=== PATIENT | female | born 1955 | race Caucasian/White ===

== ENCOUNTER → 2017-04-06 11:58 | Outpatient (CLI) | payer MEDICAID ==
[2015-07-28 04:42] VITALS: BMI 36.4
[~2017-04-06 11:58] MED LIST: ASPIRIN325 MG PO; BACTRIM DS TABL1 TAB PO; GLIPIZIDE10 MG PO; GLUCOPHAGE500 MG PO; LIPITOR10 MG PO; RIFADIN300 MG PO; ZESTRIL20 MG PO
== END | disposition home or self-care (01) ==
LOC: D.RAD 11:48 → EDSTATUS 11:57 → D.RAD 11:58
DX: M79.601 Pain in right arm (principal)

== ENCOUNTER → 2018-03-19 09:16 | Outpatient (CLI) | payer MEDICAID ==
[2015-07-28 04:42] VITALS: BMI 36.4
== END | disposition home or self-care (01) ==
LOC: D.NM 09:16
DX: I20.0 Unstable angina (principal); R06.02 Shortness of breath

== ENCOUNTER → 2018-03-27 08:52 | Outpatient (CLI) | payer MEDICAID ==
[2015-07-28 04:42] VITALS: BMI 36.4
--- NOTE | ~2018-03-27 | ST ---
PATIENT:NATHALIE MORFIN MEDICAL RECORD: [id number] SEX: F LOCATION:[facility] ORDER #: ADMISSION DATE: 03/27/18 AGE OF PATIENT: 62 REFERRING PHYSICIAN: INTERPRETING PHYSICIAN: POONAM KEYS MD DATE OF SERVICE: 03/27/2018 PROCEDURE: Nuclear stress test. INDICATION: Chest pain of unknown etiology. She was exercised on standard Lexiscan protocol with 30.2 mCi of sestamibi injected at peak stress. Rest images were done previously with 12.2 mCi. FINDINGS: Gated SPECT reveals preserved ejection fraction greater than 60% with good wall motioning and thickening and brightening throughout all segments. SPECT imaging sestamibi was used as a myocardial perfusion agent. There is homogeneous uptake throughout all segments at rest and stress with no evidence of inducible ischemia or previous infarction. OVERALL IMPRESSION: 1. This is a normal nuclear stress test with no evidence of inducible ischemia or previous infarction. 2. Gated SPECT reveals a preserved ejection fraction greater than 60%. In this patient with ongoing symptomatology, the current scan does not suggest the presence of hemodynamically significant coronary disease. Evaluate noncardiac etiology of chest pain. TRANSINT:[id number] Voice Confirmation ID: [id number] DOCUMENT ID: [id number] POONAM KEYS MD at 1914 CC: [id number] DICTATION DATE: 03/28/18919 BAG WORKER: 03/28/188 [facility] CLI 03/27/18 [facility] [address] [place] [address]
== END ==
LOC: D.NM 08:52
DX: I20.0 Unstable angina (principal); R06.02 Shortness of breath

== ENCOUNTER 2019-06-04 17:07 | Inpatient (IN) | payer MEDICAID ==
[~2019-06-04] VITALS: Ht 167.6 cm; Wt 95.5 kg
--- NOTE | 2019-06-04 17:49 | NUR ---
ATTEMPTED TO CALL REPORT, WAITING ON EVS TO CLEAN ROOM AT THIS TIME
[2019-06-04 17:52] LABS: BASOPHILS 0.1 % (0-2); EOSINOPHILS 1.1 % (0-7); HEMATOCRIT 45.2 % (36.0-48.0); IMMATURE GRANULOCYTES 0.4 % (0-5); LYMPHOCYTES 23.3 % (15-50); MCH 30.6 pg (26.0-34.0); MCHC 33.2 g/dL (31.0-37.0); MCV 92.2 fL (80.0-100.0); MEAN PLATELET VOLUME 11.3 fL (7.4-10.4); MONOCYTES 7.2 % (2-11); NEUTROPHILS 67.9 % (40-80); PLATELET COUNT 349 10x3/uL (130-400); RDW 13.3 % (11.5-14.5); WBC 14.9 10x3/uL (4.8-10.8)
[2019-06-04 18:05] LABS: INR 0.96 (0.85-1.17); PROTIME 12.3 SECONDS (11.6-15.0)
[2019-06-04 18:54] VITALS: BP 167/83
[2019-06-04 18:58] LABS: ANION GAP 15.2 mmol/L (8-16); CALCIUM 9.6 mg/dL (8.5-10.1); CARBON DIOXIDE 28.5 mmol/L (21.0-32.0); CREATININE - SERUM 0.9 mg/dL (0.6-1.3); POTASSIUM - SERUM 3.7 mmol/L (3.5-5.1)
[2019-06-04 19:04] LABS: ALBUMIN 3.5 g/dL (3.4-5.0); BILIRUBIN - TOTAL 0.5 mg/dL (0.2-1.3); PROTEIN - SERUM 7.8 g/dL (6.4-8.2)
--- NOTE | 2019-06-04 19:21 | NUR ---
PT UPDATED ON PLAN OF CARE. NO S/S OF ACUTE DISTRESS NOTED. PT DENIES PAIN TO HIP AND ONLY C/O PAIN TO RIBS WHEN MOVING ARM. PT REPORTS DECREASE IN PAIN AFTER RECEIVING MORPHINE EARLIER.
--- NOTE | 2019-06-04 19:45 | NUR ---
ADMITED TO ROOM FROM ER ALERT AND ORIENTIATED, DENIES PAIN EXCEPT WITH MOVEMENT THEN C/O MOR OF PAIN TO LEFT RIBS THAN LEFT HIP, ORIENTIATED TO ROOM CALL LIGHT IN REACH, SEE ASSESSMENT
[2019-06-04] MEDS ORDERED: HYDROCODON-ACE1 EA10 (20:07)
[2019-06-04] MEDS ORDERED: NORVASC10 MG (20:08)
--- NOTE | 2019-06-04 21:15 | NUR ---
CALL TO DR FAYE AND ORDERS RECIEVED FOR DIET, NO BUCKS TRACTION AND CHANGES IN PAIN MEDICATIONS
[2019-06-04 22:49] VITALS: BP 177/85; Ht 167.6 cm; Wt 95.5 kg
[2019-06-05] VITALS (7 sets, daily range): BP systolic 144–183; BP diastolic 70–89
[2019-06-05 05:02] LABS: BASOPHILS 0.2 % (0-2); EOSINOPHILS 2.3 % (0-7); HEMATOCRIT 41.4 % (36.0-48.0); HEMOGLOBIN 13.4 g/dL (12-16); IMMATURE GRANULOCYTES 0.2 % (0-5); LYMPHOCYTES 26.1 % (15-50); MCH 30.1 pg (26.0-34.0); MCHC 32.4 g/dL (31.0-37.0); MEAN PLATELET VOLUME 11.4 fL (7.4-10.4); MONOCYTES 9.3 % (2-11); NEUTROPHILS 61.9 % (40-80); PLATELET COUNT 320 10x3/uL (130-400); RBC 4.45 10x6/uL (4.00-5.40); RDW 13.2 % (11.5-14.5); WBC 12.5 10x3/uL (4.8-10.8)
[2019-06-05 05:18] LABS: ANION GAP 12.4 mmol/L (8-16); CARBON DIOXIDE 28.9 mmol/L (21.0-32.0); CREATININE - SERUM 0.9 mg/dL (0.6-1.3); POTASSIUM - SERUM 3.3 mmol/L (3.5-5.1)
--- NOTE | 2019-06-05 07:42 | NUR ---
USED BED NOE WITH FURNACE CHARGING MACHINE OPERATOR. VOIDED WITHOUT DIFFICUTLY. AWAKE AND ALERT. ORIENTED X3. NO C/O AT THIS TIME. LUNGS ARE CLEAR BILATERALLY, NO COUGH NOTED. SKIN IS INTACT WITHOUT REDNESS. SL TO RIGHT AC IS PATENT WITHOUT REDNESS AT INSERTION SITE. DENIES NEEDS. REPORTS PAIN ONLY WHEN SHE MOVES HER LEFT ARM. WILL MONITOR.
--- NOTE | 2019-06-05 09:30 | NUR ---
ATE MOST OF BREAKFAST. TOOK AM MEDS WITHOUT DIFFICUTLY. DENIES NEEDS. FAMILY AT BEDSIDE.
--- NOTE | 2019-06-05 12:30 | NUR ---
ATE ALL OF LUNCH. FAMILY AT BEDSIDE. DENIES NEEDS.
--- NOTE | 2019-06-05 13:15 | NUR ---
UP TO BR WITH SBA. VOIDED WITHOUT DIFFICULTY. DENIES NEEDS.
--- NOTE | 2019-06-05 17:00 | NUR ---
FSBS 245. GIVEN 4 UNITS REGULAR SUBQ PER SS. ATE ALL OF SUPPER TRAY. REPORTED UP TO BR PER SELF AND HAD A GOOD BM. DENIES NEEDS. NO CHANGES NOTED. FAMILY AT BEDSIDE.
[2019-06-06] VITALS: BP 185/99
--- NOTE | 2019-06-06 03:10 | NUR ---
ALERT AND ORENTED ABLE TO VOICE NEEDS AND WANTS TO STAFF. FAMILY AT BEDSIDE, IV TO RIGHT AC NO S/ S OF INFECTION. NO TELEMRTRY [place] AT THIS TIME. SCD'S PLACED ON PATIENT REMOVED. NON NEEDS AT THIS TIME.
--- NOTE | 2019-06-06 07:40 | NUR ---
AWAKE AND ALERT. ORIENTED X3. NO C/O AT THIS TIME. LUNGS ARE CLEAR BILATERALLY, NO COUGH NOTED. SKIN IS INTACT WITHOUT REDNESS. SL TO RIGHT AC IS PATENT WITHOUT REDNESS AT INSERTION SITE. DENIES NEEDS.
[2019-06-06 08:14] LABS: BASOPHILS 0.5 % (0-2); EOSINOPHILS 2.9 % (0-7); HEMATOCRIT 44.3 % (36.0-48.0); HEMOGLOBIN 14.8 g/dL (12-16); IMMATURE GRANULOCYTES 0.4 % (0-5); LYMPHOCYTES 27.2 % (15-50); MCH 30.8 pg (26.0-34.0); MCHC 33.4 g/dL (31.0-37.0); MCV 92.1 fL (80.0-100.0); MEAN PLATELET VOLUME 11.3 fL (7.4-10.4); MONOCYTES 8.5 % (2-11); NEUTROPHILS 60.5 % (40-80); PLATELET COUNT 320 10x3/uL (130-400); RBC 4.81 10x6/uL (4.00-5.40); RDW 13.2 % (11.5-14.5); WBC 12.9 10x3/uL (4.8-10.8)
[2019-06-06 08:24] LABS: CALC OSMOLALITY 295 mosm/kg (275-300); CALCIUM 9.4 mg/dL (8.5-10.1); CARBON DIOXIDE 28.5 mmol/L (21.0-32.0); CHLORIDE - SERUM 104 mmol/L (98-107); CREATININE - SERUM 0.8 mg/dL (0.6-1.3); GLUCOSE 279 mg/dL (74-106); SODIUM 143 mmol/L (136-145); UREA NITROGEN 15 mg/dL (7-18); eGFR NON AFRICAN AMERICAN 77 mL/min (90-120)
[2019-06-06 08:25] LABS: POTASSIUM - SERUM 3.8 mmol/L (3.5-5.1)
--- NOTE | 2019-06-06 10:04 | MORECARE ---
CASE MANAGEMENT DISCHARGE SUMMARY PATIENT: NATHALIE MORFIN UNIT: [id number] ADM DATE: 06/04/19 AGE: 64 : 57 SEX: F ROOM/BED: D.2205 AUTHOR: KARINA ALLEN PHYSICIAN: REFERRING PHYSICIAN: ERIBERTO TAN MD DATE OF SERVICE: 06/06/19 Discharge Plan Patient Name: NATHALIE MORFIN Facility: [facility]:[place] : 1955 Planned Disposition: Home Anticipated Discharge Date: 06/06/19 Discharge Date: Expected LOS: 2 Initial Reviewer: [email or web address] Initial Review Date: 06/06/2019 Generated: 06/06/19 11:03 am DCPIA - Discharge Planning Initial Assessment Updated by [email or web address]: Olamide Hirsch on 06/06/19 10:02 am * Is the patient Alert and Oriented? Yes * How many steps to enter\exit or inside your home? 3/0 * PCP Dr. Tan * Pharmacy [facility] on [address] * Preadmission Environment Home with Family * ADLs Independent * Equipment Walker * List name and contact numbers for known caregivers / representatives who currently or will assist patient after discharge: Rhea Morfin [facility] - [phone] [facility] - [phone] * Verbal permission to speak to the caregivers and representatives has been obtained from the patient. Yes * Community resources currently utilized None * Additional services required to return to the preadmission environment? No * Can the patient safely return to the preadmission environment? Yes * Has this patient been hospitalized within the prior 30 days at any hospital? No Patient Name: NATHALIE MORFIN Page 52601 at 1004 All edits/amendments must be made on the electronic document DICTATION DATE: 06/06/19 [address] DRIVER: ABHIJIT 06/06/19 1003 RPT#: [id number] DC DATE: STATUS: ADM IN [facility] [address] [place] [address] END OF REPORT
[2019-06-06 10:12] VITALS: BP 184/104
--- NOTE | 2019-06-06 10:20 | NUR ---
ATE ALL OF BREAKFAST. TOOK AM MEDS WITHOUT DIFFICULTY. DISCHARGE INSTRUCTIONS GIVEN BOTH VERBALLY AND WRITTEN. ALL QUESTIONS ANSWERED. PATIENT VERBALIZED UNDERSTANDING OF SAME. SL TO RIGHT FOREARM D/C WITH CATHETER INTACT. FAMILY IN ROOM. WAITING ON DRESSING TO LEAVE.
--- NOTE | 2019-06-06 10:51 | NUR ---
DISCHARGED TO HOME WITH FAMILY AMBULATORY. ALL BELONGINGS WITH PATIENT. NO NEW PRESCRIPTIONS NEEDED.
--- NOTE | 2019-06-08 09:59 | MORECARE ---
CASE MANAGEMENT DISCHARGE SUMMARY PATIENT: NATHALIE MORFIN UNIT: [id number] ADM DATE: 06/04/19 AGE: 64 : 57 SEX: F ROOM/BED: D.2200 AUTHOR: KARINA LALEN PHYSICIAN: REFERRING PHYSICIAN: ERIBERTO TAN MD DATE OF SERVICE: 06/08/19 Discharge Plan Patient Name: NATHALIE MORFIN Facility: [facility]:[place] : 1955 Planned Disposition: Home Anticipated Discharge Date: 06/06/19 Discharge Date: 06/06/2019 Expected LOS: 2 Initial Reviewer: [email or web address] Initial Review Date: 06/06/2019 Generated: 06/08/19 10:58 am DCP- Discharge Planning Updated by [email or web address]: Olamide Hirsch on 06/06/19 9:[address] Patient Name: NATHALIE MORFIN Admission Status: ER Accout number: [id number] Admission Date: 06-04-2019 : 1955 Admission Diagnosis: Attending: ERIBERTO TAN Current LOS: 2 Anticipated DC Date: 06-06-2019 Planned Disposition: Home Primary Insurance: MEDICAID [place] Discharge Planning Comments: CM met with patient to complete initial dc planning assessment. CM educated patient on the CM role and verbal consent given by patient to complete assessment. Patient lives at home with her daughter and . At discharge patient plans to return and feels this is a safe discharge. CM discussed availability of home health, rehab services, and medical equipment. Patient denied known discharge needs at this time. States she has a walker at home and her doctor told her to use her walker for now. States she has been ambulating without difficulty. CM will continue to follow and will assist as needed with dc plans/needs. Wastewater Superintendent: Olamide Hirsch DCPIA - Discharge Planning Initial Assessment Updated by [email or web address]: Olamide Hirsch on 06/06/19 10:02 am * Is the patient Alert and Oriented? Yes * How many steps to enter\exit or inside your home? 3/0 * PCP Dr. Tan * Pharmacy [facility] * Preadmission Environment Home with Family * ADLs Independent * Equipment Walker * List name and contact numbers for known caregivers / representatives who currently or will assist patient after discharge: Rhea Morfin - [facility] - [phone] [facility] - [phone] * Verbal permission to speak to the caregivers and representatives has been obtained from the patient. Yes * Community resources currently utilized None * Additional services required to return to the preadmission environment? No * Can the patient safely return to the preadmission environment? Yes * Has this patient been hospitalized within the prior 30 days at any hospital? No Last DP export: 06/06/19 9:04 am Patient Name: NATHALIE MORFIN Page 95653 at 0959 All edits/amendments must be made on the electronic document DICTATION DATE: 06/08/19957 BEHAVIORAL PEDIATRICIAN: ABHIJIT 06/08/19957 RPT#: [id number] DC DATE:06/06/19 STATUS: DIS IN [facility] [address] [place] [address] END OF REPORT
== END 2019-06-06 10:51 | disposition home or self-care (01) | DRG 536 ==
LOC: D.ER 17:07 → D.MS 17:40
PROVIDERS: Emergency Medicine; ADMIT Legal Medicine; ATTEND Legal Medicine
DX: S32.592A Other specified fracture of left pubis, initial encounter for closed fracture (principal); W19.XXXA Unspecified fall, initial encounter; E11.9 Type 2 diabetes mellitus without complications; I10 Essential (primary) hypertension; M16.12 Unilateral primary osteoarthritis, left hip

== ENCOUNTER 2020-03-16 19:58 | Inpatient (IN) | payer MEDICAID ==
[~2020-03-16] VITALS: Ht 167.6 cm; Wt 92.5 kg
[~2020-03-16 19:58] MED LIST changes: +HYDROCODON-ACE1 EA10 PO; +NORVASC10 MG PO
[2020-03-16 21:38] LABS: BASOPHILS 0.1 % (0-2); EOSINOPHILS 0 % (0-7); HEMATOCRIT 45.5 % (36.0-48.0); HEMOGLOBIN 14.6 g/dL (12-16); IMMATURE GRANULOCYTES 0.3 % (0-5); MCH 29.6 pg (26.0-34.0); MCHC 32.1 g/dL (31.0-37.0); MCV 92.1 fL (80.0-100.0); MEAN PLATELET VOLUME 11.8 fL (7.4-10.4); MONOCYTES 5.4 % (2-11); NEUTROPHILS 88.2 % (40-80); PLATELET COUNT 361 10x3/uL (130-400); RBC 4.94 10x6/uL (4.00-5.40); RDW 12.8 % (11.5-14.5); WBC 15.4 10x3/uL (4.8-10.8)
[2020-03-16 21:52] LABS: ALBUMIN 2.8 g/dL (3.4-5.0); ANION GAP 27.6 mmol/L (8-16); BILIRUBIN - TOTAL 0.67 mg/dL (0.2-1.3); CALCIUM 9.7 mg/dL (8.5-10.1); CARBON DIOXIDE 15.7 mmol/L (21.0-32.0); CREATININE - SERUM 1.6 mg/dL (0.6-1.3); MAGNESIUM - SERUM 2.2 mg/dL (1.8-2.4); POTASSIUM - SERUM 4.3 mmol/L (3.5-5.1)
--- NOTE | 2020-03-16 22:02 | NUR ---
BLOOD SUGAR 595 MG/DL PROVIDER AWARE
[2020-03-16 22:11] LABS: BILIRUBIN NEGATIVE (NEGATIVE); KETONE MODERATE mg/dL (NEGATIVE); NITRITE NEGATIVE (NEGATIVE); UROBILINOGEN NORMAL mg/dL (< 2)
[2020-03-16 22:16] LABS: BACTERIA MODERATE HPF (NONE SEEN); EPITHELIAL CELLS 0-5 /hpf (0-5); WHITE CELLS - URINE 0-5 HPF (0-4)
[2020-03-16 23:24] VITALS: BP 179/89
[2020-03-17] VITALS (16 sets, daily range): BP systolic 94–201; BP diastolic 50–106; BMI 32.3
[2020-03-17 08:08] LABS: ANION GAP 16.5 mmol/L (8-16); CALCIUM 8.7 mg/dL (8.5-10.1); CREATININE - SERUM 1.3 mg/dL (0.6-1.3); MAGNESIUM - SERUM 1.9 mg/dL (1.8-2.4); POTASSIUM - SERUM 4.2 mmol/L (3.5-5.1)
[2020-03-17 08:15] LABS: CARBON DIOXIDE 21.7 mmol/L (21.0-32.0)
[2020-03-17 12:46] LABS: ANION GAP 12.3 mmol/L (8-16); CALCIUM 8.5 mg/dL (8.5-10.1); CARBON DIOXIDE 22.3 mmol/L (21.0-32.0); CREATININE - SERUM 1.1 mg/dL (0.6-1.3); MAGNESIUM - SERUM 1.7 mg/dL (1.8-2.4); POTASSIUM - SERUM 3.6 mmol/L (3.5-5.1)
--- NOTE | 2020-03-17 13:48 | NUR ---
DR TAN CALLED AND ORDERS TO HOLD ORAL DIABETIC MEDICATIONS GIVEN WHILE PT IS ON INSULIN DRIP
[2020-03-17 16:24] LABS: ANION GAP 12.3 mmol/L (8-16); CALCIUM 8.2 mg/dL (8.5-10.1); CARBON DIOXIDE 23.7 mmol/L (21.0-32.0); CREATININE - SERUM 1.1 mg/dL (0.6-1.3)
[2020-03-17 16:31] LABS: MAGNESIUM - SERUM 2.6 mg/dL (1.8-2.4)
--- NOTE | 2020-03-17 20:27 | NUR ---
PT IS SITTING UP IN CHAIR IN ROOM. SHE HAS NO C/O OR NEEDS. SHE HAS BEEN UP TO [facility] TO VOID X 1. SHE HAS A SALINE LOCK IN BOTH AC'S AND ONE IN HER RIGHT HAND. VS CHARTED. PT IS STAYING WITH HER BUT HE HAS BEEN GONE PICKING UP THE CHILDREN. SKIN WARM AND DRY. PT STATES SHE CANNOT WALK BECAUSE OF HER DIABETES BUT SHE GOT TO THE [facility] WITHOUT PROBLEMS. THERE IS DISCOLORATION ON THE TOPS OF HER FEET.
--- NOTE | 2020-03-17 21:20 | NUR ---
DISCHARGED FROM ER HOLDING TO ROOM 2215. SHE WAS TRANSPORTED VIA W/C. ALL HER BELONGINGS WENT WITH HER. PT IS HERE TO STAY WITH HER. HER CHART AND A BOTTLE OF REGULAR INSULIN WERE GIVEN TO LOULOU OLIVIA.
--- NOTE | 2020-03-17 21:30 | NUR ---
ARECEIVED TO FLOOR VIA WHEELCHAIR, ACCOMPANIED BY STAFF AND S/O. A&O X 4. REPORTS SHE'S STOPPED TAKING DIABETIC MEDS BECAUSE HER DOCTOR KEPT ASKING HER WHY SHE WAS TAKING THEM. ASKED PT WHO HER DOCTOR WAS, SHE REPLIED, "THE ONE AT [facility]." ASKED PT IF HER PHARMACIST IS WHO SHE WAS TALKING TO, SHE REPLIED, "YES, THE ONE WHO GIVES ME MY MEDICINE AT [facility]." CTM.
[2020-03-18] VITALS: BP 111/71
[2020-03-18 04:00] VITALS: BP 125/79
--- NOTE | 2020-03-18 07:44 | NUR ---
0700 BEDSIDE REPORT RECEIVED SPOUSE REMAINS AT BEDSIDE
[2020-03-18 08:46] VITALS: BP 140/80
[2020-03-18 09:02] LABS: BASOPHILS 0.1 % (0-2); EOSINOPHILS 0.8 % (0-7); HEMATOCRIT 42.5 % (36.0-48.0); HEMOGLOBIN 13.9 g/dL (12-16); IMMATURE GRANULOCYTES 0.6 % (0-5); LYMPHOCYTES 13.4 % (15-50); MCH 29.6 pg (26.0-34.0); MCHC 32.7 g/dL (31.0-37.0); MCV 90.4 fL (80.0-100.0); MEAN PLATELET VOLUME 11.3 fL (7.4-10.4); MONOCYTES 9.6 % (2-11); NEUTROPHILS 75.5 % (40-80); PLATELET COUNT 332 10x3/uL (130-400); RDW 12.9 % (11.5-14.5); WBC 13.9 10x3/uL (4.8-10.8)
[2020-03-18 09:18] LABS: ANION GAP 10.9 mmol/L (8-16); CARBON DIOXIDE 26.7 mmol/L (21.0-32.0); CREATININE - SERUM 0.9 mg/dL (0.6-1.3); POTASSIUM - SERUM 3.6 mmol/L (3.5-5.1)
[2020-03-18 09:24] LABS: ALBUMIN 2.5 g/dL (3.4-5.0); BILIRUBIN - TOTAL 0.5 mg/dL (0.2-1.3)
[2020-03-18 12:00] VITALS: BP 132/90
[2020-03-18 14:05] VITALS: Ht 167.6 cm; Wt 92.5 kg
[2020-03-18 16:53] VITALS: BP 177/103
[2020-03-18 20:00] VITALS: BP 165/92
[2020-03-19] VITALS: BP 193/97
--- NOTE | 2020-03-19 01:51 | NUR ---
I have reviewed this patient and I concur with the Shift Assessment completed by the Licensed Practical Nurse today this shift.
[2020-03-19 04:00] VITALS: BP 113/62
[2020-03-19 09:18] VITALS: BP 116/76
[2020-03-19 12:30] VITALS: BP 118/69
[2020-03-19 17:06] VITALS: BP 119/67
[2020-03-19 20:00] VITALS: BP 98/55
--- NOTE | 2020-03-19 22:49 | NUR ---
PT LYING IN BED WITH SPOUSE AT BEDSIDE. PT DENIES PAIN. SL TO RIGHT HAND AND LEFT ANTECUBITAL. PT BLOOD SUGAR 132, LANTUS HELD. NURSE WILL CONTINUE TO MONITOR.
[2020-03-20 04:00] VITALS: BP 116/72
--- NOTE | 2020-03-20 06:50 | NUR ---
A&O RESTING IN BED WITH EYES OPEN. NO C/O PAIN. NO S/S OF ACUTE DISTRESS NOTED. IV'S TO RIGHT HAND AND LEFT AC, SL. SITES PATENT WITHOUT REDNESS OR SWELLING. DENIES ANY NEEDS AT THIS TIME. CALL LIGHT IN REACH. WILL CONTINUE TO MONITOR.
[2020-03-20 08:57] LABS: BASOPHILS 0.2 % (0-2); EOSINOPHILS 1.4 % (0-7); HEMATOCRIT 40.2 % (36.0-48.0); HEMOGLOBIN 13.2 g/dL (12-16); IMMATURE GRANULOCYTES 1.2 % (0-5); LYMPHOCYTES 18.9 % (15-50); MCH 29.9 pg (26.0-34.0); MCHC 32.8 g/dL (31.0-37.0); MEAN PLATELET VOLUME 11.2 fL (7.4-10.4); MONOCYTES 9.8 % (2-11); NEUTROPHILS 68.5 % (40-80); PLATELET COUNT 394 10x3/uL (130-400); RBC 4.42 10x6/uL (4.00-5.40); RDW 12.9 % (11.5-14.5); WBC 13.3 10x3/uL (4.8-10.8)
[2020-03-20 09:11] LABS: ANION GAP 14.9 mmol/L (8-16); CARBON DIOXIDE 28.4 mmol/L (21.0-32.0); CREATININE - SERUM 0.9 mg/dL (0.6-1.3); POTASSIUM - SERUM 3.3 mmol/L (3.5-5.1)
[2020-03-20 10:41] VITALS: BP 124/79
--- NOTE | 2020-03-20 12:10 | NUR ---
I have reviewed this patient and I concur with the Shift Assessment completed by the Licensed Practical Nurse today this shift.
--- NOTE | 2020-03-20 12:59 | NUR ---
Nutrition follow-up: Diet: consistent CHO PO intake 75% of most meals Labs reviewed Wt: 199# PO intake continues to be good RDN following.
[2020-03-20 14:11] VITALS: BP 100/66
--- NOTE | 2020-03-20 14:35 | MORECARE ---
CASE MANAGEMENT DISCHARGE SUMMARY PATIENT: NATHALIE MORFIN UNIT: [id number] ADM DATE: 03/16/20 AGE: 64 : 57 SEX: F ROOM/BED: D.[facility] AUTHOR: KARINA ALLEN PHYSICIAN: REFERRING PHYSICIAN: ERIBERTO TAN MD DATE OF SERVICE: 03/20/20 Discharge Plan Patient Name: NATHALIE MORFIN Facility: [facility]:[place] : 1955 Planned Disposition: Home or Self Care Anticipated Discharge Date: Discharge Date: Expected LOS: Initial Reviewer: [email or web address] Initial Review Date: 03/17/2020 Generated: 03/20/20 3:34 pm Patient Name: NATHALIE MORFIN Page [phone] at 1435 All edits/amendments must be made on the electronic document DICTATION DATE: 03/20/20 1434 DATABASE OPERATOR: ABHIJIT 03/20/20 1434 RPT#: [id number] DC DATE: STATUS: ADM IN [facility] [address] [place] [address] END OF REPORT
--- NOTE | 2020-03-20 14:44 | MORECARE ---
CASE MANAGEMENT DISCHARGE SUMMARY PATIENT: NATHALIE MORFIN UNIT: [id number] ADM DATE: 03/16/20 AGE: 64 : 57 SEX: F ROOM/BED: D.2215 AUTHOR: KARINA ALLEN PHYSICIAN: REFERRING PHYSICIAN: ERIBERTO TAN MD DATE OF SERVICE: 03/20/20 Discharge Plan Patient Name: NATHALIE MORFIN Facility: [facility]:[place] : 1955 Planned Disposition: Home or Self Care Anticipated Discharge Date: Discharge Date: Expected LOS: Initial Reviewer: [email or web address] Initial Review Date: 03/17/2020 Generated: 03/20/20 3:44 pm Comments DCP- Discharge Planning Updated by [email or web address]: Alejandra Gonzalez on 03/20/20 1:[address] Patient Name: NATHALIE MORFIN Admission Status: ER Accout number: [id number] Admission Date: 03-16-2020 : 1955 Admission Diagnosis:TYPE 2 DIABETES MELLITUS WITH HYPERGLYCEMIA Attending: ERIBERTO TAN Current LOS: 4 Anticipated DC Date: Planned Disposition: Home or Self Care Primary Insurance: MEDICAID [place] Discharge Planning Comments: CM met with patient to complete initial dc planning assessment. CM educated patient on the CM role and verbal consent given by patient to complete assessment. Patient lives at home with her , adult daughter and 6 grandkids. At discharge patient plans to return home and feels this is a safe discharge. CM discussed availability of home health, rehab services, and medical equipment. She said that she uses a shower chair at home to take a bath with. Her daughter will be her national van truck driver home. Patient denied known discharge needs at this time. CM will continue to follow and will assist as needed with dc plans/needs. Market Risk Specialist: Alejandra Gonzalez DCPIA - Discharge Planning Initial Assessment Updated by [email or web address]: Alejandra Gonzalez on 03/20/20 2:35 pm * Is the patient Alert and Oriented? Yes * How many steps to enter\exit or inside your home? * PCP BRITNEY ( ROWENA?) * Pharmacy [facility] [address] * Preadmission Environment Home with Family * ADLs Independent * Equipment Shower Chair * List name and contact numbers for known caregivers / representatives who currently or will assist patient after discharge: KOFI ( DAUGHTER) [phone] * Verbal permission to speak to the caregivers and representatives has been obtained from the patient. N/A * Community resources currently utilized None * Additional services required to return to the preadmission environment? No * Can the patient safely return to the preadmission environment? Yes * Has this patient been hospitalized within the prior 30 days at any hospital? No Last DP export: 03/20/20 1:35 Patient Name: NATHALIE MORFIN Page [phone] at 1444 All edits/amendments must be made on the electronic document DICTATION DATE: 03/20/201443 FABRICATION OPERATOR: ABHIJIT 03/20/201443 RPT#: [id number] DC DATE: STATUS: ADM IN [facility] [address] [place] [address] END OF REPORT
[2020-03-20 17:42] VITALS: BP 107/70
--- NOTE | 2020-03-20 18:08 | NUR ---
RESTING IN BED WITH EYES OPEN. NO C/O PAIN. NO S/S OF ACUTE DISTRESS NOTED. DENIES ANY NEEDS AT THIS TIME. CALL LIGHT IN REACH. WILL CONTINUE TO MONITOR.
[2020-03-20 21:05] VITALS: BP 96/42
[2020-03-21 00:55] VITALS: BP 137/70
--- NOTE | 2020-03-21 01:30 | NUR ---
IV RESITED TO RIGHT FOREARM X 2 STICKS WITH 22G.
[2020-03-21 04:15] VITALS: BP 146/77
[2020-03-21 07:00] VITALS: BP 123/68
[2020-03-21 11:00] VITALS: BP 116/70
[2020-03-21 11:42] LABS: BASOPHILS 0.2 % (0-2); EOSINOPHILS 1.8 % (0-7); HEMOGLOBIN 12.4 g/dL (12-16); IMMATURE GRANULOCYTES 1.2 % (0-5); LYMPHOCYTES 21.1 % (15-50); MCH 29.8 pg (26.0-34.0); MCHC 32.6 g/dL (31.0-37.0); MCV 91.3 fL (80.0-100.0); MEAN PLATELET VOLUME 10.9 fL (7.4-10.4); MONOCYTES 9.6 % (2-11); NEUTROPHILS 66.1 % (40-80); PLATELET COUNT 447 10x3/uL (130-400); RBC 4.16 10x6/uL (4.00-5.40); RDW 13.2 % (11.5-14.5); WBC 13.1 10x3/uL (4.8-10.8)
[2020-03-21 11:52] LABS: ANION GAP 12.8 mmol/L (8-16); CALCIUM 9.1 mg/dL (8.5-10.1); CARBON DIOXIDE 26.7 mmol/L (21.0-32.0); MAGNESIUM - SERUM 1.5 mg/dL (1.8-2.4); POTASSIUM - SERUM 3.5 mmol/L (3.5-5.1)
[2020-03-21 15:00] VITALS: BP 122/70
--- NOTE | 2020-03-21 16:55 | NUR ---
I have reviewed this patient and I concur with the Shift Assessment completed by the Licensed Practical Nurse today this shift.
--- NOTE | 2020-03-21 17:50 | NUR ---
SITTING UP IN CHAIR WATCHING TV. NO C/O PAIN. NO S/S OF ACUTE DISTRESS NOTED. DENIES ANY NEEDS AT THIS TIME. CALL LIGHT IN REACH. WILL CONTINUE TO MONITOR.
--- NOTE | 2020-03-21 19:00 | NUR ---
IN ROOM WITH PATIENT. STATES NO NEEDS AT THIS TIME.
--- NOTE | 2020-03-21 19:45 | NUR ---
PATIENT RESTING, AROUSES WHEN NAME CALLED. ASSESSMENT PERFORMED. DENIES NEEDS AT THIS TIME. CALL LIGHT CLOSE TO PATIENT. CPOC.
[2020-03-21 20:47] VITALS: BP 155/73
[2020-03-22 00:58] VITALS: BP 141/77
[2020-03-22 05:32] VITALS: BP 166/73
--- NOTE | 2020-03-22 07:29 | NUR ---
RECEIVED PT FROM FOOD BEVERAGE SERVER. PT IS REPORTED TO BE ALERT AND ORIENTED X4, UP ADLIB. RIGHT AND LEFT FOREARM IV'S THAT ARE SALINE LOCKED. ROOM AIR, TELEMETRY AND IS REFUSING SCD'S.
--- NOTE | 2020-03-22 09:22 | NUR ---
PT UPRIGHT IN BED, FAMILY AT BEDSIDE. ADMINISTERED MORNING MEDICATION AT THIS TIME, NO DIFFICULTIES. DENIES ANY NEEDS. BED IN LOWEST POSITION, BED RAILS X2, CALL LIGHT WITHIN REACH. WILL CONTINUE TO MONITOR. ASSESSMENT PERFORMED AT THIS TIME.
[2020-03-22 09:37] VITALS: BP 142/73
--- NOTE | 2020-03-22 10:19 | NUR ---
I have reviewed this patient and I concur with the Shift Assessment completed by the Licensed Practical Nurse today this shift.
[2020-03-22 10:46] LABS: BASOPHILS 0.1 % (0-2); EOSINOPHILS 1.4 % (0-7); HEMATOCRIT 35.9 % (36.0-48.0); HEMOGLOBIN 11.7 g/dL (12-16); IMMATURE GRANULOCYTES 1.2 % (0-5); MCH 30.4 pg (26.0-34.0); MCHC 32.6 g/dL (31.0-37.0); MCV 93.2 fL (80.0-100.0); MONOCYTES 9.7 % (2-11); NEUTROPHILS 63.6 % (40-80); PLATELET COUNT 422 10x3/uL (130-400); RBC 3.85 10x6/uL (4.00-5.40); RDW 13.3 % (11.5-14.5); WBC 13.5 10x3/uL (4.8-10.8)
[2020-03-22 11:03] LABS: ANION GAP 12.2 mmol/L (8-16); BILIRUBIN - TOTAL 0.23 mg/dL (0.2-1.3); CALCIUM 9.1 mg/dL (8.5-10.1); CARBON DIOXIDE 29.3 mmol/L (21.0-32.0); MAGNESIUM - SERUM 1.3 mg/dL (1.8-2.4); POTASSIUM - SERUM 3.5 mmol/L (3.5-5.1); PROTEIN - SERUM 6.6 g/dL (6.4-8.2)
--- NOTE | 2020-03-22 11:48 | NUR ---
ASSESSED BLOOD SUGAR, NO INSULIN PER SLIDING SCALE FOR 108. RESTING IN BEDSIDE CHAIR. DENIES ANY NEEDS. WILL CONTINUE TO MONITOR.
[2020-03-22 12:00] VITALS: BP 94/60
[2020-03-22] MEDS ORDERED: LANTUS INS100 UNITS/ SC (12:07)
[2020-03-22] MEDS ORDERED: MAG-OX 400 MG400 MG PO (12:08)
[2020-03-22] MEDS ORDERED: LIPITOR10 MG PO (12:13)
--- NOTE | 2020-03-22 15:12 | NUR ---
REMOVED IV FROM RIGHT FOREARM WIHT CATHETER TIP INTACT, TOELRATED WELL. COVERED WITH GAUZE AND TAPE. PT SIGNED ALL DISCHARGE PAPERWORK. READY TO LEAVE, WAITING ON RIDE TO ARRIVE.
--- NOTE | 2020-03-22 17:54 | MORECARE ---
CASE MANAGEMENT DISCHARGE SUMMARY PATIENT: NATHALIE MORFIN UNIT: [id number] ADM DATE: 03/16/20 AGE: 64 : 57 SEX: F ROOM/BED: D.2215 AUTHOR: KARINA ALLEN PHYSICIAN: REFERRING PHYSICIAN: ERIBERTO TAN MD DATE OF SERVICE: 03/22/20 Discharge Plan Patient Name: NATHALIE MORFIN Facility: [facility]:[place] : 1955 Planned Disposition: Home or Self Care Anticipated Discharge Date: Discharge Date: 03/22/2020 Expected LOS: Initial Reviewer: [email or web address] Initial Review Date: 03/17/2020 Generated: 03/22/20 6:53 pm Comments DCP- Discharge Planning Updated by [email or web address]: Rg Trinh on 03/22/20 4:[address] Patient Name: NATHALIE MORFIN Encounter No: [id number] : 1955 Primary Insurance: MEDICAID [place] Anticipated DC Date: Planned Disposition: Home or Self Care External Planned Provider: : DCP follow-up note: Patient and family in agreement with discharge plan. No changes to plan. Case management will follow and assist as needed. Rg Trinh DCP- Discharge Planning Updated by [email or web address]: Alejandra Gonzalez on 03/20/20 1:[address] Patient Name: NATHALIE MORFIN Admission Status: ER Accout number: [id number] Admission Date: 03-16-2020 : 1955 Admission Diagnosis:TYPE 2 DIABETES MELLITUS WITH HYPERGLYCEMIA Attending: ERIBERTO TAN Current LOS: 4 Anticipated DC Date: Planned Disposition: Home or Self Care Primary Insurance: MEDICAID [place] Discharge Planning Comments: CM met with patient to complete initial dc planning assessment. CM educated patient on the CM role and verbal consent given by patient to complete assessment. Patient lives at home with her , adult daughter and 6 grandkids. At discharge patient plans to return home and feels this is a safe discharge. CM discussed availability of home health, rehab services, and medical equipment. She said that she uses a shower chair at home to take a bath with. Her daughter will be her certified driver examiner home. Patient denied known discharge needs at this time. CM will continue to follow and will assist as needed with dc plans/needs. Admin Assistant: Alejandra Gonzalez DCPIA - Discharge Planning Initial Assessment Updated by [email or web address]: Alejandra Gonzalez on 03/20/20 2:35 pm * Is the patient Alert and Oriented? Yes * How many steps to enter\exit or inside your home? * PCP BRITNEY ( ROWENA?) * Pharmacy [facility] * Preadmission Environment Home with Family * ADLs Independent * Equipment Shower Chair * List name and contact numbers for known caregivers / representatives who currently or will assist patient after discharge: KOFI ( DAUGHTER) [phone] * Verbal permission to speak to the caregivers and representatives has been obtained from the patient. N/A * Community resources currently utilized None * Additional services required to return to the preadmission environment? No * Can the patient safely return to the preadmission environment? Yes * Has this patient been hospitalized within the prior 30 days at any hospital? No Last DP export: 03/20/20 1:44 Patient Name: NATHALIE MORFIN Page 29381 at 1754 All edits/amendments must be made on the electronic document DICTATION DATE: 03/22/201753 WATCHER AUTOMAT LONG GOODS: ABHIJIT 03/22/201753 RPT#: [id number] DC DATE:03/22/20 STATUS: DIS IN [facility] [address] [place] [address] END OF REPORT
--- NOTE | 2020-03-23 09:28 | MORECARE ---
CASE MANAGEMENT DISCHARGE SUMMARY PATIENT: NATHALIE MORFIN UNIT: [id number] ADM DATE: 03/16/20 AGE: 64 : 57 SEX: F ROOM/BED: D.2215 AUTHOR: KARINA ALLEN PHYSICIAN: REFERRING PHYSICIAN: ERIBERTO TAN MD DATE OF SERVICE: 03/23/20 Discharge Plan Patient Name: NATHALIE MORFIN Facility: [facility]:[place] : 1955 Planned Disposition: Home or Self Care Anticipated Discharge Date: Discharge Date: 03/22/2020 Expected LOS: Initial Reviewer: [email or web address] Initial Review Date: 03/17/2020 Generated: 03/23/20 10:28 am Comments DCP- Discharge Planning Updated by [email or web address]: Rg Trinh on 03/22/20 4:[address] Patient Name: NATHALIE MORFIN Encounter No: [id number] : 1955 Primary Insurance: MEDICAID [place] Anticipated DC Date: Planned Disposition: Home or Self Care External Planned Provider: : DCP follow-up note: Patient and family in agreement with discharge plan. No changes to plan. Case management will follow and assist as needed. Rg Trinh DCP- Discharge Planning Updated by [email or web address]: Alejandra Gonzalez on 03/20/20 1:[address] Patient Name: NATHALIE MORFIN Admission Status: ER Accout number: [id number] Admission Date: 03-16-2020 : 1955 Admission Diagnosis:TYPE 2 DIABETES MELLITUS WITH HYPERGLYCEMIA Attending: ERIBERTO TAN Current LOS: 4 Anticipated DC Date: Planned Disposition: Home or Self Care Primary Insurance: MEDICAID [place] Discharge Planning Comments: CM met with patient to complete initial dc planning assessment. CM educated patient on the CM role and verbal consent given by patient to complete assessment. Patient lives at home with her , adult daughter and 6 grandkids. At discharge patient plans to return home and feels this is a safe discharge. CM discussed availability of home health, rehab services, and medical equipment. She said that she uses a shower chair at home to take a bath with. Her daughter will be her driver's license reviewing officer home. Patient denied known discharge needs at this time. CM will continue to follow and will assist as needed with dc plans/needs. Cognos Developer: Alejandra Gonzalez DCPIA - Discharge Planning Initial Assessment Updated by [email or web address]: Alejandra Gonzalez on 03/20/20 2:35 pm * Is the patient Alert and Oriented? Yes * How many steps to enter\exit or inside your home? * PCP BRITNEY ( [place]?) * Pharmacy [facility] * Preadmission Environment Home with Family * ADLs Independent * Equipment Shower Chair * List name and contact numbers for known caregivers / representatives who currently or will assist patient after discharge: KOFI ( DAUGHTER) [phone] * Verbal permission to speak to the caregivers and representatives has been obtained from the patient. N/A * Community resources currently utilized None * Additional services required to return to the preadmission environment? No * Can the patient safely return to the preadmission environment? Yes * Has this patient been hospitalized within the prior 30 days at any hospital? No Last DP export: 03/22/20 4:54 Patient Name: NATHALIE MORFIN Page 28040 at 0928 All edits/amendments must be made on the electronic document DICTATION DATE: 03/23/20927 PROCESS SERVER: ABHIJIT 03/23/20927 RPT#: [id number] DC DATE:03/22/20 STATUS: DIS IN [facility] [address] [place] [address] END OF REPORT
== END 2020-03-22 16:32 | disposition home or self-care (01) | DRG 638 ==
LOC: D.ER 19:58 → D.MS 22:59 → D.EDHOLD 22:59 → D.MS 03-17 19:44
PROVIDERS: Family Medicine; ADMIT Legal Medicine; ATTEND Legal Medicine
DX: E11.10 Type 2 diabetes mellitus with ketoacidosis without coma (principal); E87.1 Hypo-osmolality and hyponatremia; I10 Essential (primary) hypertension; E86.0 Dehydration